=== PATIENT | female | born 1965 | race Caucasian/White ===

== ENCOUNTER → 2025-05-03 14:57 | Outpatient (REF) | payer BC, SELFPAY | LOC: WDC 14:57 | PROVIDERS: ATTENDING PHYSICIAN Nurse Practitioner Family | DX: Z12.31 Encounter for screening mammogram for malignant neoplasm of breast (principal) | CPT/HCPCS: 77063; 77067 ==

== ENCOUNTER → 2025-09-19 16:02 | Outpatient (REF) | payer BC, SELFPAY | LOC: RAD 16:02 | PROVIDERS: ATTENDING PHYSICIAN Physician Assistant | DX: M25.562 Pain in left knee (principal) | CPT/HCPCS: 73564 ==